=== PATIENT | female | born 1975 | race Caucasian/White ===

== ENCOUNTER 2020-10-09 14:52 | Emergency (ER) | payer SELFPAY ==
[2020-10-09 14:59] VITALS: BP 174/91; PULSE 99; RESP 18; TEMP 36.7; O2SAT 96; BMI 24.0
--- NOTE | 2020-10-09 15:15 | ECG_ITS ---
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
--- NOTE | 2020-10-09 15:15 | XRR_ITS ---
PROCEDURE INFORMATION: Exam: XR Chest Exam date and time: 10/09/2020 3:37 PM Age: 45 years old Clinical indication: Chest pain; Other: Central; Patient HX: PT states hbp today TECHNIQUE: Imaging protocol: XR of the chest. Views: 1 view. Total images: 1 COMPARISON: No relevant prior studies available. FINDINGS: Lungs: Unremarkable. No consolidation. Pleural spaces: Unremarkable. No pleural effusion. No pneumothorax. Heart/Mediastinum: Unremarkable. No cardiomegaly. Bones/joints: Unremarkable. XR/XR chest 1V portable [id number] IMPRESSION: No acute findings.
--- NOTE | 2020-10-09 15:16 | ED_ITS ---
HPI - Chest Pain General: Chief Complaint: Chest Pain Stated Complaint: high bp,chest pain Time Seen by Provider: 10/09/20 15:15 Source: patient Mode of arrival: ambulatory Limitations: no limitations History of Present Illness: HPI narrative: 45-year-old female comes in with chest discomfort. Patient reports that she do not know if is due to her anxiety or something else is going on. Last week she was seen and was worked up which they noted that her blood pressure was up a little bit but everything else checked out fine including her EKG and routine labs. Patient does have a history of vertigo. Patient has noticed some increase in her dizziness. Patient was also started on some doxycycline on Sunday for concerns of a tick bite that she got 2 weeks ago that remained to be red and inflamed. MD complaint: chest discomfort Review of Systems General: Reports: 10 or more systems reviewed and unremarkable except in HPI and below Card: Reports: chest pain Physical Exam Const: COMMON NORMALS: no acute distress and patient oriented x3 GENERAL APPEARANCE: cooperative HENMT: COMMON NORMALS: normocephalic and Normal external nose present HEAD & SCALP: normal to inspection and normocephalic NOSE: Normal external nose present MOUTH: Normal oral and palatal mucosa present THROAT: posterior or opharynx normal Eye: GENERAL EYE: appearance normal, both eyes and all related structures Neck/C-Spine: COMMON NORMALS: full ROM Lymph: LYMPHATIC: no lymphadenopathy noted Chest: COMMONS NORMALS: normal inspection of the chest Resp: COMMON NORMALS: normal respiratory effort EFFORT & INSPECTION: Yes able to speak in complete sentences Cardio: COMMON NORMALS: regular rate and regular rhythm RATE: regular rate RHYTHM: regular rhythm GI: COMMON NORMALS: non-tender : COMMON NORMALS: Yes no CVA tenderness BLADDER/KIDNEY EXAM: Yes no CVA tenderness Back/Pelvis: COMMON NORMALS: no CVA tenderness and thoracic and lumbar spine normal to inspection Extremity: COMMON NORMALS: normal to inspection Neuro: COMMON NORMALS: patient oriented x3 and moves all extremities Psych: COMMON NORMALS: mental status grossly normal and cooperative Skin: COMMON NORMALS: no rashes or lesions noted GENERAL SKIN EXAM: no rashes or lesions noted Course Vital Signs: Vital signs: Vital Signs Temperature 98.0 F 10/09/20 14:59 Pulse Rate 79 10/09/20 16:09 Respiratory Rate 18 10/09/20 16:09 Blood Pressure 139/88 10/09/20 16:09 Pulse Oximetry 98 10/09/20 16:09 MDM - Chest Pain MDM Narrative: Medical decision making narrative: Patient comes in today for complaints of of chest discomfort. Patient has had symptoms like this for the last week. Patient was evaluated at primary care office last Sunday with an EKG and some lab work but showed no significant abnormality. Patient was then treated on Sunday for a tick bite that she had noticed from 2 weeks prior that remained reddened. Patient comes in today due to continued discomfort in her chest after being referred from [facility] where her primary care is established. On exam respirations are even lungs are clear to auscultation. Skin is warm and dry. Vital signs are normal except for some elevated blood pressure. Differential diagnosis includes ACS, uncontrolled hypertension, bronchitis. Chest x-ray was normal. Lungs are clear to auscultation. EKG was normal without any change in 2 hours. Laboratory values were unremarkable. Blood pressure was corrected with clonidine 0.1 mg. I believe patient probably needs to be on blood pressure medication and wrote a prescription for lisinopril 10 which she needs to follow-up with primary care for further discussion and consideration of continuing treatment or stopping. Do not feel that the patient's chest discomfort is due to cardiac abnormalities although further evaluation of health and safety instructor may be considered. I reviewed this with patient who agreed to plan and need for follow-up. Lab Data: Labs: Lab Results 10/09/20 10/09/20 10/09/20 Range/Units 15:46 15:46 15:46 WBC 6.3 (4.0-10.0) 10^3/ uL RBC 5.02 (4.1-5.3) 10^6/u L Hgb 14.6 (11.5-15.3) g/dL Hct 43.2 (37.0-47.0) % MCV 86.1 (81-99) fL MCH 29.1 (28.0-34.0) pg MCHC 33.8 (30.0-36.0) g/dL RDW 13.2 (12.1-15.1) % Plt Count 256 (130-400) 10^3/c mm MPV 11.5 H (7.4-10.4) fL Neut % (Auto) 72.1 % Lymph % (Auto) 20.8 % [place] % (Auto) 4.6 % Eos % (Auto) 1.6 % Baso % (Auto) 0.6 % Neut # (Auto) 4.54 (1.8-7.7) 10^3/u L Lymph # (Auto) 1.3 (0.8-4.8) 10^3/u L [place] # (Auto) 0.3 (0.2-0.9) 10^3/u L Eos # (Auto) 0.1 (0.0-0.8) 10^3/u L Baso # (Auto) 0.0 (0.0-0.1) 10^3/u L Nucleated RBC % (a uto) 0 % Nucleated RBCs # 0.0 /100WBC Sodium 139 (136-145) mmol/L Potassium 4.2 (3.5-5.1) mmol/L Chloride 102 (98-107) mmol/L Carbon Dioxide 25 (22-29) mmol/L Anion Gap 16.2 (5-19) BUN 9 (6-20) mg/dL Creatinine 0.6 (0.5-0.9) mg/dL GFR Calculation 109.1 (90-130) mL/min Glucose 95 (65-115) mg/dL Calculated Osmolal ity 286 (285-295) mOsm/k g Calcium 9.7 (8.5-10.5) mg/dL Total Bilirubin 0.5 (0.15-1.2) mg/dL AST 17 (0-32) U/L ALT 13 (0-33) U/L Alkaline Phosphata se 69 (35-105) IU/L Troponin T Baselin e 6 (0-10) ng/L C-Reactive Protein 0.9 (0.0-4.9) mg/L NT-Pro-B Natriuret Pep 47 (0-125) pg/mL Total Protein 7.6 (6.6-8.7) g/dL Albumin 4.9 (3.5-5.2) g/dL Globulin 2.7 (1.3-4.6) g/dL EKG Data^: EKG 1: Attestation: I personally reviewed and interpreted this EKG as follows: (1515, EKG shows a normal sinus rhythm, 76 bpm and regular. No ST elevation, no ectopy, no changes noted from prior exam.) EKG 2: Attestation: I personally reviewed and interpreted this EKG as follows: (1700, EKG shows normal sinus rhythm, regular rate at 79 bpm, no ST elevation no ectopy is noted. No change from prior exam.) Discharge Plan Discharge Patient Disposition: Home Condition: Stable Prescriptions: New lisinopril 10 mg tablet 10 mg PO DAILY Qty: 14 RF: 0 No Action doxycycline hyclate 100 mg Capsule 100 mg PO BID RF: 0 Discharge Orders: Discharge ED (Routine); Ordered 10/10/20 Ordered By: Kel Hernandez Discharge Diet: Usual diet Discharge Activity: Increase activity as tolerated Patient Instructions: Opioid Safety Activity Restrictions/Additional Instructions: Home and rest. Light activity. Change positions slowly. Drink plenty of water with medication. Follow-up with primary care at next scheduled appointment. Coding Level of Care Code ED Mold Finisher for Sharon Fwelaine Exam Comprehensive
[2020-10-09 15:35] VITALS: BP 174/92
[2020-10-09] MEDS: cloNIDine 0.1 mg Tablet PO (15:35)
[2020-10-09 15:54] LABS: Basophils % 0.6 %; Eosinophils # 0.1 10^3/uL (0.0-0.8); Eosinophils % 1.6 %; Hematocrit 43.2 % (37.0-47.0); Hemoglobin 14.6 g/dL (11.5-15.3); Lymphocytes # 1.3 10^3/uL (0.8-4.8); Lymphocytes % 20.8 %; Mean Corpuscular HGB Conc 33.8 g/dL (30.0-36.0); Mean Corpuscular Hemoglobin 29.1 pg (28.0-34.0); Mean Corpuscular Volume 86.1 fL (81-99); Mean Platelet Volume 11.5 fL (7.4-10.4); Monocytes # 0.3 10^3/uL (0.2-0.9); Monocytes % 4.6 %; Neutrophils # 4.54 10^3/uL (1.8-7.7); Neutrophils % 72.1 %; Nucleated Red Blood Cells % 0 %; Platelet Count 256 10^3/cmm (130-400); Red Blood Count 5.02 10^6/uL (4.1-5.3); Red Cell Distribution Width 13.2 % (12.1-15.1); White Blood Count 6.3 10^3/uL (4.0-10.0)
[2020-10-09 16:09] VITALS: BP 139/88; PULSE 79; RESP 18; O2SAT 98
[2020-10-09 16:31] LABS: Troponin(5th) Baseline 6 ng/L (0-10)
[2020-10-09 17:07] LABS: Alanine Aminotransferase 13 U/L (0-33); Albumin Level 4.9 g/dL (3.5-5.2); Alkaline Phosphatase 69 IU/L (35-105); Anion Gap 16.2 (5-19); Aspartate Amino Transferase 17 U/L (0-32); Blood Urea Nitrogen 9 mg/dL (6-20); C Reactive Protein 0.9 mg/L (0.0-4.9); Calcium 9.7 mg/dL (8.5-10.5); Carbon Dioxide 25 mmol/L (22-29); Chloride 102 mmol/L (98-107); Creatinine Clr Calc Pharmacy 111.1189; Globulin 2.7 g/dL (1.3-4.6); Glomerular Filtration Rate 109.1 mL/min (90-130); Glucose 95 mg/dL (65-115); NT Pro B Type Natriuretic Pept 47 pg/mL (0-125); Osmolality Calculated 286 mOsm/kg (285-295); Potassium 4.2 mmol/L (3.5-5.1); Sodium 139 mmol/L (136-145); Total Bilirubin 0.5 mg/dL (0.15-1.2); Total Protein 7.6 g/dL (6.6-8.7)
--- NOTE | 2020-10-09 17:15 | ECG_ITS ---
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
== END 2020-10-09 17:36 | disposition home or self-care (01) ==
PROVIDERS: Emergency Provider Nurse Practitioner Family
DX: R07.89 Other chest pain (principal)
CPT/HCPCS: 71045; 80053; 83880; 84484; 85025; 86140; 93005; 99283

== ENCOUNTER 2020-11-29 13:14 | Outpatient (CLI) | payer SELFPAY ==
--- NOTE | 2020-11-29 13:32 | XR_ITS ---
WS: [id number] LUMBAR SPINE FLEXION AND EXTENSION TECHNIQUE: 3 views of the lumbar spine: Lateral neutral, flexion, and extension views. CLINICAL INFORMATION: LOW BACK PAIN COMPARISON: None. FINDINGS: Normal lumbar alignment on the neutral view. Mild disc space narrowing L4-L5 and L5-S1. Mild facet ar thropathy L5-S1. No instability on the flexion and extension views. XR/XR lumbar spine f/e only [id number] IMPRESSION: 1. Normal lumbar alignment on the neutral view. 2. No instability on flexion-extension. 3. Mild disc space narrowing L4-L5 and L5-S1. 4. Mild facet arthropathy L5-S1.
== END 2020-11-29 13:15 | disposition home or self-care (01) ==
PROVIDERS: Visit Provider Anesthesiology Pain Medicine
DX: M54.5 Low back pain (principal); M47.817 Spondylosis without myelopathy or radiculopathy, lumbosacral region
CPT/HCPCS: 72120

== ENCOUNTER 2021-02-26 09:16 | Emergency (ER) | payer MEDICAID, SELFPAY ==
[2021-02-26 09:25] VITALS: BMI 22.3
--- NOTE | 2021-02-26 09:30 | W.ED.BACK ---
HPI - Back Pain/Injury General: Chief Complaint: Back Pain/Injury Stated Complaint: back pain Time Seen by Provider: 02/26/21 09:20 History of Present Illness: HPI Narrative: Juju is a 46-year-old lady with history of low back pain who presents emergency department due to worst pain. She reports a longstanding history of back pain however there is no preceding trauma or known inciting event. Most recently her back pain is flared up for about 1 week. She notes severe spasming left sided low back pain with radiation down the leg which she describes as tingling and occasionally bdhl-nen-ghlkeer/burning numbness. She has seen both a chiropractor 8 days ago who did manipulation and massage and a pain specialist 4 days ago who did a paraspinal muscle steroid injection however her symptoms have continued to worsen. For the past 2 days she has been unable to get out of bed due to the severity of her pain. She takes tramadol and meloxicam at home as well as Tylenol for her symptoms however her symptoms have continued to worsen. Her symptoms are worse with movement but do not go with rest. She denies other changes in health including infectious symptoms. No saddle anesthesia, loss of control of bowel or bladder, or other red flag symptoms. Review of Systems General: Reports: 10 or more systems reviewed and unremarkable except in HPI and below Narrative: CONSTITUTIONAL: denies fever, fatigue, weakness EYES - denies pain, denies loss of vision EARS - denies ear issues. NOSE - denies congestion or rhinorrhea. THROAT - denies sore throat or difficulty swallowing. CARDIOVASCULAR - denies chest pain and palpitations RESPIRATORY - denies shortness of breath and cough GASTROINTESTINAL - denies abdominal pain, no nausea vomiting, no changes in bowel habits GENITOURINARY - denies dysuria or urinary frequency MUSCULOSKELETAL-see HPI SKIN - denies rashes or new changed skin lesions NEUROLOGIC -see HPI HEMATOLOGIC/LYMPHATIC - denies easy bruising or lymphadenopathy. Physical Exam Narrative: EXAM NARRATIVE: GENERAL/CONSTITUTIONAL - well-appearing. Uncomfortable, laying on her back try not to move due to pain. Eyes - PERRL, no conjunctival injection ENMT - Atraumatic external nose and ears. Moist mucous membranes NECK - supple. trachea midline CARDIOVASCULAR - regular rate and rhythm. RESPIRATORY -clear to auscultation bilaterally. No retractions or accessory muscle use. ABDOMEN/GI - Nontender. Nondistended. MSK - tenderness palpation of the left midline lumbar spine and left paraspinal region. There is marked tenderness palpation at the left sciatic foramen. SKIN - Warm, Dry NEURO - alert and appropriately oriented. Moves all extremities equally. Course ED course: - Patient was seen and evaluated by me at bedside - Patient placed on cardiac monitors, IV access obtained - Initial evaluation notable for uncomfortable appearance, pain with palpation of as noted -Analgesia ordered - Labs notable for no evidence of UTI, patient is on her period. - Imaging notable for Large disc extrusion at L5-S1 with moderate to severe narrowing of the left central canal and severe narrowing of the left foramina with mass effect on the L5 and S1 nerve roots. This almost certainly explains the patient's symptoms. - Upon serial reexamination after treatment the patient was improved, I did give her subdissociative dose of ketamine for musculoskeletal pain however she only got a small amount of this before reporting that she disliked the feeling of it. No evidence of allergic reaction. Her symptoms of feeling anxious and shaky resolved with Ativan. - Discussed the case with Dr. Garcia of the orthopedic spine service. Will prescribe steroid taper. - Based on patient history, evaluation, labs, and imaging as interpreted the most likely cause of the patient's condition is back pain related to findings above - The results of ED evaluation were discussed with the patient including prescriptions and/or symptomatic cares (if applicable) including appropriate and responsible use, followup plan, and return precautions. The patient verbalized understanding and felt safe for discharge. - Patient discharged in satisfactory condition. Vital Signs: Vital signs: Vital Signs Temperature 98.0 F 02/26/21 09:44 Pulse Rate 78 02/26/21 13:01 Respiratory Rate 16 02/26/21 10:49 Blood Pressure 142/75 02/26/21 13:01 Pulse Oximetry 96 02/26/21 13:01 MDM - Back Pain/Injury Medical Records: Attestation: I reviewed the patient's medical records. Lab Data: Attestation: I reviewed the patient's lab results. Labs: Lab Results 02/26/21 02/26/21 02/26/21 Range/Units 09:36 10:14 10:14 Sodium 137 (136-145) mmol/L Potassium 3.5 (3.5-5.1) mmol/L Chloride 95 L (98-107) mmol/L Carbon Dioxide 23 (22-29) mmol/L Anion Gap 22.5 H (5-19) BUN 12 (6-20) mg/dL Creatinine 0.6 (0.5-0.9) mg/dL GFR Calculation 108.6 (90-130) mL/min Glucose 94 (65-115) mg/dL Calculated Osmolal ity 284 L (285-295) mOsm/k g Calcium 10.3 (8.5-10.5) mg/dL Magnesium 1.9 (1.7-2.3) mg/dL HCG, Qual Negative (Negative) Urine Color Red (Yellow) Urine Appearance Bloody A (CLEAR) Urine pH 9 H (5-7) Ur Specific Gravit y 1.010 (1.005-1.030) Urine Protein 1+ H (Negative) Urine Glucose (UA) Norm (Normal) Urine Ketones 1+ H (Negative) Urine Blood 3+ H (Negative) Urine Nitrate Negative (Negative) Urine Bilirubin Neg (Negative) Prot Sulfosalicyli c Acd Positive (Negative) Urine Urobilinogen Norm (Negative) mg/dL Ur Leukocyte Xuan ase Negative (Negative) Urine RBC Too numerous to c nt H (0-2) /hpf Urine WBC 5-10 H (0-5) /hpf Ur Squamous Epith Cells 5-10 H (0-5) /hpf Amorphous Sediment Not Reportable Urine Bacteria 2+ H (NONE) /hpf Discharge Plan Discharge Patient Disposition: Home Clinical Impression: Sciatica, Lumbar back pain Condition: Stable Prescriptions: New oxycodone 5 mg tablet 5 mg PO Q4H PRN (Reason: pain) Qty: 30 RF: 0 cyclobenzaprine 10 mg tablet 10 mg PO TID PRN (Reason: muscle spasm) Qty: 20 RF: 0 prednisone 20 mg tablet See Rx Instructions .ROUTE .COMPLEX Qty: 15 RF: 0 No Action doxycycline hyclate 100 mg Capsule 100 mg PO BID RF: 0 lisinopril 10 mg tablet 10 mg PO DAILY Qty: 14 RF: 0 Discharge Orders: Discharge ED (Routine); Ordered 02/26/21 Ordered By: Aaron Cronin Referrals: Guillermo Vo MD [Primary Care Provider] - Discharge Diet: Usual diet Discharge Activity: Increase activity as tolerated Patient Instructions: Lumbar Spinal Stenosis (ED), Back Pain (ED), Opioid Safety Activity Restrictions/Additional Instructions: Thank you for visiting the emergency department. You were seen and evaluated for back pain. Evaluation demonstrated the following abnormality: IMPRESSION: 1. Large disc extrusion at L5-S1 with moderate to severe narrowing of the left central canal and severe narrowing of the left foramina with mass effect on the L5 and S1 nerve roots. As discussed you will be given a few prescriptions. Please follow-up with Dr. Garcia in the orthopedic spine clinic next week. Do not combine oxycodone with your tramadol. Do not perform dangerous tasks or drive while under the influence of oxycodone. Please return to the emergency department for anything we discussed or anything else that you are concerned about and feel needs emergency department evaluation. Coding Level of Care Code ED Bleach Boiler Filler for Sharon Carter
[2021-02-26 09:44] VITALS: PULSE 79; RESP 20; TEMP 36.7; O2SAT 100
[2021-02-26 09:50] VITALS: BP 148/69; PULSE 87; O2SAT 100
--- NOTE | 2021-02-26 09:55 | CTR_ITS ---
PROCEDURE INFORMATION: Exam: CT Lumbar Spine Without Contrast Exam date and time: 02/26/2021 9:55 AM Age: 46 years old Clinical indication: Low back pain; Additional info: Severe low back pain, no known trauma TECHNIQUE: Imaging protocol: Computed tomography images of the lumbar spine without contrast. Radiation optimization: All CT scans at this facility use at least one of these dose optimization techniques: automated exposure control; mA and/or kV adjustment per patient size (includes targeted exams where dose is matched to clinical indication); or iterative reconstruction. COMPARISON: CR XR lumbar spine f/e only [id number] 11/29/2020 1:40 PM RADIATION DOSE METRICS: Total DLP (mGy-cm): 299.68 FINDINGS: Vertebrae: No bony fracture or subluxation. Mild facet degenerative changes are noted in the spine. There is disc space narrowing at L5-S1. Discs/Spinal canal/Neural foramina: There is a large left paracentral and lateral disc extrusion at L5-S1 with flattening of the anterolateral thecal sac, severe narrowing of the left foramina and probable exiting L5 nerve root and mass effect on the S1 nerve root. No additional disc bulge or protrusion. No additional disc bulge, protrusion or stenosis. Soft tissues: Unremarkable. CT/CT lumbar spine wo con* [id number] IMPRESSION: 1. Large disc extrusion at L5-S1 with moderate to severe narrowing of the left central canal and severe narrowing of the left foramina with mass effect on the L5 and S1 nerve roots. 2. No acute bony abnormality. Radiation Dose CTDIVOL = (mGy): DLP = 299.68 (mGy-cm)
[2021-02-26] MEDS: cyclobenzaprine 10 mg Tablet PO (10:03)
[2021-02-26] MEDS: morphine 4 mg/mL SDV 1 mL IVP (10:03)
[2021-02-26] MEDS: ketorolac 30 mg/mL INJ 15 MG IVP (10:03)
[2021-02-26] MEDS: lidocaine 5% Patch 1 PATCH TOPICAL (10:04)
[2021-02-26] MEDS: lactated ringers 1,000 ML 999 ML IV (10:19)
[2021-02-26 10:31] LABS: HCG Qualitative Urine. Negative (Negative)
[2021-02-26 10:40] LABS: Urine Appearance Bloody (CLEAR); Urine Color Red (Yellow); pH Urine 9 (5-7)
[2021-02-26 10:41] LABS: Add Urine Microscopic? YES; Bilirubin Urine Neg (Negative); Blood Urine 3+ (Negative); Glucose Urine UA Norm (Normal); Ketones Urine 1+ (Negative); Leukocyte Esterase Urine Negative (Negative); Nitrate Urine Negative (Negative); Protein Urine 1+ (Negative); Sulfosalicylic Acid Urine Positive (Negative); Urobilinogen Urine Norm (Negative)
[2021-02-26 10:43] LABS: Add Urine Culture? Yes; Bacteria Urine 2+ /hpf; RBC Urine TOO NUMEROUS TO CNT /hpf (0-2)
[2021-02-26 10:49] VITALS: BP 141/74; PULSE 69; RESP 16; O2SAT 98
[2021-02-26 10:49] LABS: Anion Gap 22.5 (5-19); Blood Urea Nitrogen 12 mg/dL (6-20); Calcium 10.3 mg/dL (8.5-10.5); Carbon Dioxide 23 mmol/L (22-29); Chloride 95 mmol/L (98-107); Glomerular Filtration Rate 108.6 mL/min (90-130); Glucose 94 mg/dL (65-115); Magnesium 1.9 mg/dL (1.7-2.3); Osmolality Calculated 284 mOsm/kg (285-295); Potassium 3.5 mmol/L (3.5-5.1); Sodium 137 mmol/L (136-145)
[2021-02-26] MEDS: LORazepam 2 mg/mL INJ 1 mL 0.5 MG IVP (12:07)
[2021-02-26 12:32] VITALS: BP 122/79; PULSE 87; O2SAT 97
[2021-02-26 13:01] VITALS: BP 142/75; PULSE 78; O2SAT 96
--- NOTE | 2021-02-28 08:50 | DCPLANNER ---
manager strategy & account had message to schedule a follow up appointment for patient with ortho. manager strategy & account called the ortho clinic, spoke with Nesha, gave clinic patients information. manager strategy & account was told that patients information would be printed and reviewed. Clinic will call patient with appointment information.
--- NOTE | 2021-03-01 14:11 | DCPLANNER ---
Patient has a follow up appointment scheduled for Monday, March 01, [address] at 9:[address] Garcia. Clinic will call patient with appointment information.
--- NOTE | 2021-03-03 08:42 | DCPLANNER ---
Patient has a follow up appointment scheduled for 03.01.[address] Garcia at [facility] - patient did attend appointment.
== END 2021-02-26 13:05 | disposition home or self-care (01) ==
PROVIDERS: Emergency Provider Emergency Medicine; PCP Family Medicine
DX: M54.40 Lumbago with sciatica, unspecified side (principal)
CPT/HCPCS: 72131; 80048; 81001; 81025; 83735; 87077; 87086; 87186; 96365; 96375; 99284; J1885; J2060; J2270; J3490

== ENCOUNTER → 2021-03-01 09:02 | Outpatient (BNVA) | payer MEDICAID, SELFPAY | PROVIDERS: PCP Family Medicine; Referring Provider Emergency Medicine; Visit Provider Orthopaedic Surgery | DX: M54.5 Low back pain (principal); M54.30 Sciatica, unspecified side | CPT/HCPCS: 72110 ==

== ENCOUNTER 2021-03-02 09:20 | Outpatient (CLI) | payer MEDICAID, SELFPAY ==
--- NOTE | 2021-03-02 09:30 | MR_ITS ---
WS: [id number] MRI LUMBAR SPINE NONCONTRAST TECHNIQUE: Sagittal T1, T2 and STIR imaging. Axial T1 and T2 imaging. CLINICAL INFORMATION: M54.5 - Low back pain COMPARISON: CT February 26, 2021 FINDINGS: Mild lumbar curve. No acute compression. No high-grade central canal stenosis. Left subarticular disc extrusion L5-S1 unchanged since the recent CT. L1-L2: Normal. L2-L3: Normal. L3-L4: No significant disc bulging. Mild facet arthropathy. Tiny left foraminal protrusion with sligh t contact of the exiting left L3 nerve root. Mild left foraminal narrowing. L4-L5: Mild annular bulging. Spinal canal and foramen are patent. Mild facet arthropathy. L5-S1: Left pericentral and subarticular disc extrusion. Impingement on the traversing left S1 and S2 nerve roots. Mild central canal stenosis. Impingement on the proximal exiting left L5 nerve root wit h moderate left proximal foraminal narrowing. Right foramen is patent. Mild facet arthropathy. Disc m aterial measures 12 x 12 mm. Visualized pelvic bony structures: Normal. Paravertebral soft tissues: Normal. MR/MR lumbar spine wo con* [id number] IMPRESSION: 1. Large left pericentral and subarticular disc extrusion left L5-S1 measuring 12 x 12 mm. Impingement on the traversing left S1 and S2 nerve roots. Mild tracy tral canal stenosis. 2. Disc material extension into the left L5-S1 neural foramen with moderate le ft foraminal narrowing and contact of the exiting left L5 nerve root. 3. Tiny left foraminal protrusion L3-4 slightly contacts the exiting left L3 n erve root with mild left foraminal narrowing. 4. Mild facet arthropathy L3-L5.
== END 2021-03-02 09:21 | disposition home or self-care (01) ==
LOC: RADSHAW 09:22
PROVIDERS: PCP Family Medicine; Visit Provider Orthopaedic Surgery
DX: M51.27 Other intervertebral disc displacement, lumbosacral region (principal); M51.26 Other intervertebral disc displacement, lumbar region; M47.816 Spondylosis without myelopathy or radiculopathy, lumbar region
CPT/HCPCS: 72148

== ENCOUNTER → 2021-03-03 15:46 | Outpatient (BNVA) | payer MEDICAID, SELFPAY | PROVIDERS: PCP Family Medicine; Visit Provider Orthopaedic Surgery | DX: Z20.822 Contact with and (suspected) exposure to COVID-19 (principal); Z98.890 Other specified postprocedural states; Z87.39 Personal history of other diseases of the musculoskeletal system and connective tissue | CPT/HCPCS: 87635 ==

== ENCOUNTER 2021-03-04 10:17 | Day surgery (SDC) | payer MEDICAID, SELFPAY ==
[2021-03-04] VITALS (16 sets, daily range): BP systolic 115–154; BP diastolic 68–104; PULSE 71–108; RESP 12–27; TEMP 36–37; O2SAT 94–100; BMI 21.9
--- NOTE | 2021-03-04 | XR_ITS ---
WS: [id number] Lumbar spine, C-arm fluoroscopy, 03/04/2021 Clinical Data: lumbar discetomy Comparison: None. Findings: Dr. Garcia performed a L5-S1 decompression. XR/XR lumbar spine 1V [id number] Impression: L5-S1 decompression.
--- NOTE | 2021-03-04 | SCC_ITS ---
Procedure Done: Left L5/S1 Laminectomy with partial facetectomy and discectomy 8.3 seconds of fluoroscopic guidance, for a cumulative dose of 1.51 mGy, was provided to Dr. Garcia by the radiology department. C-arm images of the lumbar spine were saved for the patient's permanent record. [facility]
[2021-03-04] MEDS: sodium chloride 0.9% 1,000 ML 30 ML IV (11:05)
--- NOTE | 2021-03-04 11:48 | W.PM.OPSUD ---
Surgery/Procedure H&P Update DATE OF PROCEDURE: March 04, 2021 DATE H&P PERFORMED: 03/03/21 H&P UPDATE INFORMATION: I have reviewed H&P completed within last 30 days, I have examined patient prior to procedure and No changes to prior documentation PREOP DIAGNOSIS: Herniated nucleus pulposis left at L5-S1 PLANNED PROCEDURE: Operation Date: 03/04/21 13:50 Proposed Procedures p Left L5/S1 Discectomy(Not Applicable) - Julian Garcia DO
--- NOTE | 2021-03-04 12:27 | ANES.PREANE2 ---
Pre-Anesthetic Assessment Pre-Anesthetic Assessment: Height/Weight: Height 1.63 m Weight 58.06 kg Temp Pulse Resp BP Pulse Ox 96.8 F L 103 H 18 154/104 100 03/04/21 10:30 03/04/21 10:30 03/04/21 10:30 03/04/21 10:30 03/04/21 10:30 Preop Diagnosis: Herniated nucleus pulposis left at L5-S1 Proposed Procedure: Operation Date: 03/04/21 13:50 Proposed Procedures p Left L5/S1 Discectomy(Not Applicable) - Julian Garcia, DO Was Beta Pedro taken within 24 hours: N/A Was Clonidine taken within 24 hours: N/A Last intake: Intake Last Liquid Date 03/03/21 Last Liquid Time 20:00 Last Solid Date 03/03/21 Last Solid Time 20:00 Social: Social History: No alcohol and No tobacco Exam: Pre-Anes Outpt Exam: alert and oriented x 3 Airway: Submandibular: WNL Cervical ROM: WNL MP: 1 Pulmonary: Pulmonary: None reported CV/HEM: CV/HEM: None reported : : None reported Hepatic: Hepatic: None reported GI: GI: None reported Metabolic: Metabolic: None reported Musc/skel: Musc/skel: None reported Neuropsych: Neuropsych: None reported Anesthetic Plan: ASA status: 1 Anesthesia: General Risk of > 500 ml blood loss (7ml/kg in children): No Meds/Allergies Current Medications: Current Medications Generic Name Dose Route Start Last Admin Trade Name Freq PRN Reason Stop Dose Admin Sodium Chloride 1,000 mls @ 30 ml s/hr 03/04/21 10:30 03/04/21 11:05 Sodium Chloride 0.9% IV 03/05/21 10:29 30 mls/hr .Q24H DARIUS Administration PFSH Anesthesia Female Reproductive History: Date of last menstrual period: 03/04/21 Data Anesthesia Cardiac Studies: No Data to Display
[2021-03-04 13:22] LABS: OR HCG Qualitative Urine Negative (Negative)
--- NOTE | 2021-03-04 13:39 | PM.OP ---
Operative Report Date of procedure: March 04, 2021 Pre-op Diagnosis: Herniated nucleus pulposis left at L5-S1 Post-op diagnosis: same Procedure Done: Left L5/S1 Laminectomy with partial facetectomy and discectomy Surgeon: Julian Garcia Anesthesia: General Estimated blood loss (mL): 5 Condition: stable Disposition: PACU Procedure: Left L5/S1 Laminectomy with partial facetectomy and discectomy Patient is brought to the operative suite. After undergoing anesthesia they are placed in the supine position. All areas of impingement are well padded. Patient is then prepped and draped in the normal sterile fashion. A skin incision is made over the L5/S1 level. This is confirmed under c-arm guidance. A series of dilators are passed and the tubular retractor is docked on the L5 lamina. A bovie is used to clear the soft tissue off the lamina and the L 5/S1 facet joint. A high speed kalyn is then used to perform the laminectomy and take down the medial aspect of the L 5/S1 facet joint. A kerrison rongeure was then used to take down the remaining lamina and smooth the edge of the laminectomy up to the point where the ligamentum flavum attaches. Attention was then brought to the medial aspect of the facet joint. The remaining medial aspect of the superior and inferior aspect of the facet joint were taken down with the kerrison from the pedicle of L5 to S1. The facet joint had significant hypertrophy. Attention was then brought to the Ligamentum Flavum. The ligament was taken down from the lamina of L5 to s1 and out medially to the remaining facet joint. The ligament was normal. The dura was then exposed. The dura was in good repair.S1 nerve was then retracted and a large disk was identified. The disk was then removed with a pituitary in piece meal. The L5 nerve was then traced with a curette out the L5/S1 foramen and found to be adequately decompressed. The S1 nerve was traced with a curette around the S1 pedicle. The lateral recess was opened with a kerrison helping to further decompress the S1 nerve. Wound is then irrigated copiously with saline and surgiflo is used to stop any bleeding. The tubular retractor is removed and the wound is closed with vicryl and monocryl suture. Glue is then used to protect the wound. A sterile dressing is then placed. Patient was then placed in the supine position and transferred to the PACU in stable condition.
[2021-03-04] MEDS: meperidine 50 mg/mL INJ 12.5 MG IVP ×2 (14:08→14:16)
[2021-03-04] MEDS: midazolam 1 mg/mL INJ 2 mL IVP (14:26)
--- NOTE | 2021-03-04 14:29 | SUR.PHASEI ---
PT ARRIVED TO PACU AWAKE ALERT C/O OF PAIN TO LT BUTTOCKS AND DOWN LEG WITH LT FOOT STILL NUMB, PT STATES HER WHOLE LEG WAS NUMB BEFORE SURGERY , NOW AN INCREASING (ACHE) IS NOTED 69968 PT SHIVERING UNCONTROLLED WARM BLANKETS X 4 TO PT SEE MEDS GIVEN 1426 PT ANXIOUS AND STATES ( I JUST CANT RELAX , IM SO TENSE) SEE MEDS GIVEN FOR PAIN AND SHIVERING AND ANXIETY. SEE MED GIVEN
--- NOTE | 2021-03-04 14:49 | SUR.PHASEI ---
1441 PT AWAKES EASILY STATES PAIN IS BETTER, VSS PT HANDOFF TO OPS.
== END 2021-03-04 16:00 | disposition home or self-care (01) ==
PROVIDERS: Anesthesiology; PCP Family Medicine; Visit Provider Orthopaedic Surgery
PROC: (CPT 63047; principal; 2021-03-04 13:40)
DX: M51.27 Other intervertebral disc displacement, lumbosacral region (principal)
CPT/HCPCS: 63047; 72020; 76000; 84703; 96365; J0690; J1100; J2175; J2250; J2405; J2704; J2710; J3010; J3490; J7030

== ENCOUNTER → 2023-06-28 08:55 | Outpatient (BNVA) | payer MEDICAID, SELFPAY | PROVIDERS: PCP Family Medicine; Visit Provider Family Medicine | DX: M54.30 Sciatica, unspecified side (principal); R42 Dizziness and giddiness | CPT/HCPCS: 80053; 80061; 82607; 84443; 85025 ==